=== PATIENT | female | born 1935 | race Two or more races ===

== ENCOUNTER 2018-11-13 16:29 | Inpatient (IN) | payer MEDICARE, MEDICAID ==
[~2018-11-13] VITALS: Ht 152.4 cm; Wt 64.0 kg
--- NOTE | 2018-11-13 16:38 | NUR ---
FROM MD OFFICE W FACIAL DROOP, LKW 0900 TODAY; S/P GLF C/O LOWER BACK PAIN. LEFT-SIDED FACIAL DROOP, -DYSARTHRIA. [place]-SPEAKING, AOX3, VSS, RR EVEN AND UNLABORED ON RA. FAMILY AT BEDSIDE. HOOKED TO MONITOR AND READY FOR EVAL.
[2018-11-13] MEDS ORDERED: MECL-102 PO (16:59)
[2018-11-13] MEDS ORDERED: FLUT1DIS3 IH (16:59)
[2018-11-13] MEDS ORDERED: OLME40TA12 PO (16:59)
[2018-11-13] MEDS ORDERED: ASPI-605 PO (16:59)
[2018-11-13] MEDS ORDERED: DONE10TA44 PO (16:59)
[2018-11-13] MEDS ORDERED: LORA0.5T PO (16:59)
[2018-11-13] MEDS ORDERED: METF-440 PO (16:59)
[2018-11-13] MEDS ORDERED: ATEN25TA PO (16:59)
[2018-11-13] MEDS ORDERED: SITA100T PO (16:59)
[2018-11-13] MEDS ORDERED: SIMV20TA6 PO (16:59)
[2018-11-13 17:29] LABS: BASOPHILS % (AUTO) 0.8 % (0.0-2.0); EOSINOPHILS % (AUTO) 2.1 % (0.0-6.0); HEMATOCRIT 42 % (33-45); HEMOGLOBIN 14.7 g/dL (11.5-14.8); LYMPHOCYTES # (AUTO) 1.1 /CMM (0.8-4.8); LYMPHOCYTES % (AUTO) 20.4 % (20.0-44.0); MEAN CORPUSCULAR HGB CONC 35 g/dl (31.0-36.0); MEAN CORPUSCULAR VOLUME 89 fL (82-100); MONOCYTES # (AUTO) 0.5 /CMM (0.1-1.30); MONOCYTES % (AUTO) 8.7 % (2.0-12.0); NEUTROPHILS # (AUTO) 3.7 /CMM (1.8-8.9); PLATELET COUNT (AUTO) 84 /CMM (150-450); RED BLOOD CELL COUNT(AUTO) 4.71 MIL/uL (4.0-5.2); WHITE BLOOD COUNT (AUTO) 5.4 K/uL (4.3-11.0)
[2018-11-13] MEDS ORDERED: CT SWABBABLE VALVE TRANS SET 1 EA INFUS.SET MC ONE (17:31)
[2018-11-13] MEDS ORDERED: IOHEXOL-350 100 ML VIAL IV ONE (17:31)
[2018-11-13] MEDS ORDERED: IV NS 0.9% 250 ML IV ONE (17:31)
[2018-11-13 17:39] LABS: EOSINOPHILS % (MANUAL) 1 % (0-4); LYMPHOCYTES % (MANUAL) 21 % (16-48); NEUTROPHILS % (MANUAL) 72 (42-76); REACTIVE LYMPHOCYTES 6 % (0-0)
[2018-11-13 17:47] LABS: ALANINE AMINOTRANSFERASE 34 U/L (12-78); ALBUMIN 3.5 g/dL (3.4-5.0); ALKALINE PHOSPHATASE 108 U/L (46-116); ASPARTATE AMINOTRANSFERASE 29 U/L (15-37); BILIRUBIN,DIRECT 0.2 mg/dL (0.0-0.2); BILIRUBIN,TOTAL 0.7 mg/dL (0.2-1.0); CALCIUM, SERUM 8.7 mg/dL (8.5-10.1); CHLORIDE 106 mmol/L (98-107); CREATININE 0.8 mg/dL (0.6-1.3); GLUCOSE 218 mg/dL (74-106); SODIUM SERUM 140 mmol/L (136-145); TOTAL PROTEIN, SERUM 7.1 g/dL (6.4-8.2); UREA NITROGEN, BLOOD 16 mg/dL (7-18)
[2018-11-13 17:54] LABS: CARBON DIOXIDE 21 mmol/L (21-32)
[2018-11-13] MEDS ORDERED: ASPIRIN 325 MG TABLET ONE (18:14)
--- NOTE | 2018-11-13 18:28 | NUR ---
Patient is resting comfortably in bed with eyes closed. Easily aroused. VSS
[2018-11-13] MEDS ORDERED: ASPIRIN 325 MG TABLET PO ONE (18:30)
--- NOTE | 2018-11-13 18:31 | NUR ---
CALLED FOR TELE BED, DX CVA
[2018-11-13 18:40] LABS: CHOLESTEROL 122 mg/dL (<200); HDL CHOLESTEROL 43 mg/dL (40-60); LDL 62 mg/dL (0-99); TRIGLYCERIDES 145 mg/dL (30-150)
[2018-11-13] MEDS ORDERED: IV 1/2NS 1000 ML 1,000 ML IV PRN (20:00)
--- NOTE | 2018-11-13 20:24 | NUR ---
REPORT GIVEN TO AMANDO MERLOS FOR 113-1 TELE
--- NOTE | 2018-11-13 20:50 | NUR ---
GUEST SERVICE TEAM LEADER NOTE RECEIVED PT VIA GUNEY. TRANSFERRED SAFELY TO BED. FAMILY AT BEDSIDE. PT A/O X2-3, FOLLOWS COMMANDS AND ABLE TO VERBALIZE NEEDS IN [place]. SPEECH IS NOT SLURRED OR DELAYED. DAUGHTER AT BEDSIDE TRANSLATING PT NEEDS. NOTED WITH LEFT SIDED FACIAL DROOP. NO C/O PAIN OR DISCOMFORT NOTED. ON ROOM AIR, SATURATING WELL AND BREATHING REGULAR AND UNLABORED. FINGER FOURDRINIER OPERATOR STRONG BILATERALLY. PT ABLE TO POINT TOES AND MOVE LEGS AGAINST PRESSURE. ON ASPIRATION PRECAUTIONS AND HOB ELEVATED. CALL LIGHT WITHIN REACH. WILL CONTINUE TO MONITOR.
--- NOTE | 2018-11-13 20:51 | NUR ---
[facility]
[2018-11-13] MEDS ORDERED: SIMVASTATIN 20 MG TABLET PO SCH (22:00)
[2018-11-13] MEDS: MECLIZINE HCL 25 MG TABLET PO SCH (22:37)
[2018-11-13] MEDS: ATENOLOL 25 MG TABLET PO SCH (22:37)
--- NOTE | 2018-11-13 22:40 | NUR ---
GUITAR INSTRUCTOR NOTE PERFORMED BEDSIDE NURSING SWALLOW EVAL. PT ABLE TO SWALLOW SIPS OF WATER AND APPLE SAUCE WITHOUT DIFFICULTY. NO COUGHING NOTED WHEN SWALLOWING. HOB MAINTAINED ELEVATED. FAMILY AT BEDSIDE. NOTIFIED HOT PATCHER SETH DOCKET CLERK THAT PT IS SWALLOWING WITHOUT DIFFICULTY WITH ORDERS TO KEEP PT NPO OVER NIGHT, ORDER ST EVAL IN AM AND GIVE NIGHT TIME MEDS WITH SIP OF WATER OK. ORDERS NOTED AND CARRIED OUT. WILL MONITOR.
[2018-11-13] MEDS ORDERED: hydrALAZINE HCL IV 20 MG VIAL IV PRN (23:30)
[2018-11-14] VITALS: BP_SYST 114; BP_SYST 124; BP_DIAS 59; BP_DIAS 61
[2018-11-14] MEDS ORDERED: BLOOD SUGAR DIAGNOSTIC 1 EACH STRIP IN SCH
[2018-11-14] MEDS: BLOOD SUGAR DIAGNOSTIC 1 EACH STRIP IN SCH ×5 (00:37→21:27)
[2018-11-14 04:00] VITALS: BP 159/63
[2018-11-14 06:28] LABS: BASOPHILS % (AUTO) 0.8 % (0.0-2.0); EOSINOPHILS % (AUTO) 3.6 % (0.0-6.0); HEMATOCRIT 41 % (33-45); HEMOGLOBIN 14.3 g/dL (11.5-14.8); LYMPHOCYTES # (AUTO) 1.4 /CMM (0.8-4.8); LYMPHOCYTES % (AUTO) 27.7 % (20.0-44.0); MEAN CORPUSCULAR HGB CONC 35 g/dl (31.0-36.0); MEAN CORPUSCULAR VOLUME 89 fL (82-100); MONOCYTES # (AUTO) 0.4 /CMM (0.1-1.30); MONOCYTES % (AUTO) 8.4 % (2.0-12.0); NEUTROPHILS # (AUTO) 3.1 /CMM (1.8-8.9); NEUTROPHILS % (AUTO) 59.5 % (43.0-81.0); PLATELET COUNT (AUTO) 77 /CMM (150-450); RED BLOOD CELL COUNT(AUTO) 4.59 MIL/uL (4.0-5.2); WHITE BLOOD COUNT (AUTO) 5.2 K/uL (4.3-11.0)
[2018-11-14 06:41] LABS: CHOLESTEROL 106 mg/dL (<200); HDL CHOLESTEROL 42 mg/dL (40-60); LDL 55 mg/dL (0-99); TRIGLYCERIDES 94 mg/dL (30-150)
[2018-11-14 06:42] LABS: ALANINE AMINOTRANSFERASE 31 U/L (12-78); ALBUMIN 3.3 g/dL (3.4-5.0); ALKALINE PHOSPHATASE 99 U/L (46-116); ASPARTATE AMINOTRANSFERASE 24 U/L (15-37); BILIRUBIN,TOTAL 0.7 mg/dL (0.2-1.0); CALCIUM, SERUM 8.6 mg/dL (8.5-10.1); CARBON DIOXIDE 23 mmol/L (21-32); CHLORIDE 105 mmol/L (98-107); CREATININE 0.6 mg/dL (0.6-1.3); GLUCOSE 142 mg/dL (74-106); POTASSIUM 3.8 mmol/L (3.5-5.1); SODIUM SERUM 139 mmol/L (136-145); TOTAL PROTEIN, SERUM 6.6 g/dL (6.4-8.2); UREA NITROGEN, BLOOD 14 mg/dL (7-18)
[2018-11-14 07:10] LABS: THYROID STIMULATING HORMONE 3.302 uIU/mL (0.358-3.74)
--- NOTE | 2018-11-14 07:30 | NUR ---
ANATOMY TEACHER NOTES PT IN BED, AO X 3, [place] SPEAKING. ON RA, NOT IN ANY DISTRESS, NO SIGNS OF PAIN, SR HR 72 ON MONITOR, NPO FOR NOW UNTIL SEEN [facility] SPEECH THERAPIST. RT HAND WITH 1/2 NS RUNNING AT 80 ML/HR. SITE CLEAR. BED REST FOR NOW. SAFETY MEASURES IN PLACE. WILL CONT TO MONITOR.
[2018-11-14 08:00] VITALS: BP 138/67
[2018-11-14] MEDS: LOSARTAN POTASSIUM 50 MG TABLET PO SCH (08:29)
[2018-11-14] MEDS: LORAZEPAM 0.5 MG TABLET PO SCH (08:30)
[2018-11-14] MEDS: METFORMIN 500 MG TABLET PO SCH ×3 (08:30→18:07)
[2018-11-14] MEDS: ATENOLOL 25 MG TABLET PO SCH (08:31)
[2018-11-14] MEDS: LINAGLIPTIN 5 MG TABLET PO SCH (08:31)
[2018-11-14] MEDS ORDERED: ASPIRIN EC 81 MG TABLET.DR PO SCH (09:00)
[2018-11-14] MEDS ORDERED: ASPIRIN EC 325 MG TABLET.DR PO SCH (09:00)
[2018-11-14] MEDS: FLUTICASONE/VILANTEROL 1 EACH BLST.W.DEV IH SCH (09:00)
--- NOTE | 2018-11-14 09:30 | NUR ---
MECHANICAL ASSEMBLY NOTES DUE MEDS GIVEN PT SEEN BY SPEECH THERAPIST. SWALLOW EVAL DONE - PASSED. PLACED ON MECHANICAL SOFT CCHO 60 GMS/CARDIAC DIET.
[2018-11-14 12:00] VITALS: BP 123/58
[2018-11-14] MEDS: CARVEDILOL 12.5 MG TABLET PO SCH ×2 (12:28→21:24)
[2018-11-14 16:00] VITALS: BP_SYST 114; BP_SYST 130; BP_DIAS 62; BP_DIAS 87
--- NOTE | 2018-11-14 16:39 | NUR ---
FINANCIAL SERVICES EDUCATION CONSULTANT NOTES SHREYA HERNANDEZ NP INFORMED, UNABLE TO DO MRI OF BRAIN DUE TO PATIENT WOULD NOT LIE STILL. PER HIM TO TRY AGAIN TOMORROW. ORDER PUT IN.
[2018-11-14 17:13] LABS: APPEARANCE,URINE TURBID (CLEAR); BILIRUBIN,URINE NEGATIVE (NEGATIVE); BLOOD, URINE 1+ Ery/uL (NEGATIVE); COLOR,URINE YELLOW (YELLOW); KETONES,URINE NEGATIVE (NEGATIVE); LEUKOCYTE ESTERASE ,URINE 3+ (NEGATIVE); NITRITE, URINE POSITIVE (NEGATIVE); PH,URINE 6.5 (5.0-8.0); PROTEIN,URINE NEGATIVE (NEGATIVE); UGLUCOSE NEGATIVE (NEGATIVE); UROBILINOGEN,URINE 0.2 EU/dL (0.2)
[2018-11-14 17:29] LABS: BACTERIA,URINE 3+ /HPF (None Seen); SQUAMOUS EPITHELIAL CELL,UR Few /HPF (None Seen); WBC,URINE TOO NUMEROUS TO COUN /HPF (0-3)
--- NOTE | 2018-11-14 18:28 | NUR ---
RN NOTES PATIENT PICKED UP FOR MRI.
--- NOTE | 2018-11-14 19:35 | NUR ---
RN NOTES PATIENT RESTING. FAMILY AT BEDSIDE. ON RA, NOT IN ANY DISTRESS. SEEN BY DR. KINGSTON. STARTED ON PLAVIX, ZOCOR INCREASED TO 40 MG DAILY. ALL NEEDS MET. THORACIC/LUMBAR BRACE AT BEDSIDE C/O PHYSICAL THERAPY TOMORROW. ALL NEEDS MET AT THIS TIME. NO OTHER SIGNIFICANT CHANGE IN CONDITION. ENDORSED TO NEXT SHIFT FOR JUSTYNA.
[2018-11-14 20:00] VITALS: BP 121/66
--- NOTE | 2018-11-14 20:00 | NUR ---
RN/TELE NOTES: RECEIVED PT. IN BED AWAKE NOT IN ANY RESPIRATORY DISTRESS NOTED. PT. IS ARABIC SPEAKING ONLY. NO S/S OF CHEST PAIN OR SOB NOTED. PT. WAS ABLE TO TAKE WHOLE MEDS W/ NO DIFFICULTY. ON TELE MONITOR W/ SR 82. PT. PULLED OUT HER IV. INCONTINENT OF B/B. GOOD ROBERTO CARE RENDERED. WILL CONTINUE TO MONITOR.
[2018-11-14] MEDS: DONEPEZIL 5 MG TABLET PO SCH (21:22)
[2018-11-14] MEDS: MECLIZINE HCL 25 MG TABLET PO SCH (21:24)
[2018-11-14] MEDS: SIMVASTATIN 40 MG TABLET PO SCH (21:24)
[2018-11-15] VITALS: BP 114/59
[2018-11-15 04:00] VITALS: BP 101/52
--- NOTE | 2018-11-15 07:15 | NUR ---
SHELL SHOP SUPERVISOR OPENING NOTES RECEIVED REPORT FROM LONE LEAD LINEMAN RN. PT IS RESTING IN BED. NO OBVIOUS SIGNS OF SOB OR PAIN NOTED AT THIS TIME. REPORTED BY LONE LEAD LINEMAN RN PT PULLED OUT IV AND IS REFUSING TO HAVE ANOTHER ONE PUT IN. BED IS IN LOWEST AND LOCKED POSITION WITH CALL LIGHT IN REACH. WILL CONTINUE TO MONITOR.
[2018-11-15 07:26] LABS: ALANINE AMINOTRANSFERASE 26 U/L (12-78); ALKALINE PHOSPHATASE 91 U/L (46-116); ASPARTATE AMINOTRANSFERASE 22 U/L (15-37); BASOPHILS % (AUTO) 0.5 % (0.0-2.0); BILIRUBIN,TOTAL 0.8 mg/dL (0.2-1.0); CALCIUM, SERUM 8.3 mg/dL (8.5-10.1); CARBON DIOXIDE 24 mmol/L (21-32); CHLORIDE 106 mmol/L (98-107); CREATININE 0.8 mg/dL (0.6-1.3); EOSINOPHILS % (AUTO) 2.6 % (0.0-6.0); GLUCOSE 138 mg/dL (74-106); HEMATOCRIT 39 % (33-45); HEMOGLOBIN 13.4 g/dL (11.5-14.8); LYMPHOCYTES # (AUTO) 1.7 /CMM (0.8-4.8); LYMPHOCYTES % (AUTO) 27.4 % (20.0-44.0); MEAN CORPUSCULAR HGB CONC 35 g/dl (31.0-36.0); MEAN CORPUSCULAR VOLUME 89 fL (82-100); MONOCYTES # (AUTO) 0.5 /CMM (0.1-1.30); MONOCYTES % (AUTO) 7.8 % (2.0-12.0); NEUTROPHILS # (AUTO) 3.7 /CMM (1.8-8.9); NEUTROPHILS % (AUTO) 61.7 % (43.0-81.0); PHOSPHORUS 3.9 mg/dL (2.5-4.9); PLATELET COUNT (AUTO) 87 /CMM (150-450); RED BLOOD CELL COUNT(AUTO) 4.38 MIL/uL (4.0-5.2); SODIUM SERUM 139 mmol/L (136-145); TOTAL PROTEIN, SERUM 6.3 g/dL (6.4-8.2); UREA NITROGEN, BLOOD 19 mg/dL (7-18)
--- NOTE | 2018-11-15 07:29 | NUR ---
RN/TELE NOTES: PT. PULLED OUT HER IV AND REFUSED TO HAVE PUT ANOTHER ONE. EXPLAINED THE IMPORTANCE BUT STILL REFUSED. PAGED BASE FILLER OPERATOR TO INFORM ABOUT THE BS OF 170. WILL ENDORSE AM SHIFT TO F/U UP. REPORT GIVEN TO AM SHIFT NURSE FOR JUSTYNA.
--- NOTE | 2018-11-15 07:33 | NUR ---
[facility] CALLED AT 0733.MD ALREADY AWARE OF HIGH LEVEL. TRENDING DOWN.
[2018-11-15] MEDS: BLOOD SUGAR DIAGNOSTIC 1 EACH STRIP IN SCH ×4 (07:59→21:12)
[2018-11-15 08:00] VITALS: BP 131/47
[2018-11-15] MEDS: FLUTICASONE/VILANTEROL 1 EACH BLST.W.DEV IH SCH (08:26)
[2018-11-15] MEDS: LINAGLIPTIN 5 MG TABLET PO SCH (08:26)
[2018-11-15] MEDS: LORAZEPAM 0.5 MG TABLET PO SCH ×2 (08:26→08:33)
[2018-11-15] MEDS: CLOPIDOGREL BISULFATE 75 MG TABLET PO SCH (08:27)
[2018-11-15] MEDS: METFORMIN 500 MG TABLET PO SCH ×4 (08:27→16:43)
[2018-11-15] MEDS: LOSARTAN POTASSIUM 50 MG TABLET PO SCH (08:27)
[2018-11-15] MEDS: CARVEDILOL 12.5 MG TABLET PO SCH ×2 (08:28→21:11)
[2018-11-15] MEDS ORDERED: HYDROCODONE/APAP 5/325MG 1 EACH TABLET PO PRN (10:30)
--- NOTE | 2018-11-15 13:34 | NUR ---
PT REFUSING IV INSERTION. CALLED DYE TUB TENDER MARY SWITCHED ANTIBIOTIC TO PO.
[2018-11-15] MEDS ORDERED: DEXTROSE 50%-WATER 50 ML DISP.SYRIN IV PRN (14:00)
[2018-11-15] MEDS ORDERED: CEFTRIAXONE 1 G in IV D5W 50 ML IV SCH (14:00)
[2018-11-15] MEDS: LEVOFLOXACIN (500MG) 500 MG TABLET PO SCH (14:27)
[2018-11-15 16:00] VITALS: BP 121/60
--- NOTE | 2018-11-15 16:43 | NUR ---
PT AND PT'S DAUGHTER ARE REFUSING TO TAKE METFORMIN TODAY BELIEVES TOMORROW THE MEDICATION SHOULD BE STARTED AGAIN.
--- NOTE | 2018-11-15 19:30 | NUR ---
MS1 RN NOTES RECEIVED ON BED ON SITTING POSITION,A/O X3,ARMENIA SPEAKING,EATING GUYANESE FOOD,FAMILY MEMBER AT BEDSIDE.NO SALINE LOCK PER REPORT,FAMILY REFUSED IV RE INSERTION .ALL MEDS CHANGED TO PO BY DR HERNANDEZ.NOTED SLIGHT RIGHT FACIAL DROOP.BUT NEGATIVE FOR STROKE.FALL PRECAUTION OBSERVED,BED ON LOWEST POSITION AND LOCKED.CALL LIGHT IN REACH,NEEDS ANTICIPATED.
--- NOTE | 2018-11-15 19:34 | NUR ---
RN MS CLOSING NOTES GAVE REPORT TO STRATEGY LEAD RN. PT IS RESTING IN BED. NO OBVIOUS SIGNS OF SOB OR PAIN NOTED AT THIS TIME. REPORTED BY STRATEGY LEAD RN PT PULLED OUT IV AND IS REFUSING TO HAVE ANOTHER ONE PUT IN. BED IS IN LOWEST AND LOCKED POSITION WITH CALL LIGHT IN REACH. WILL ENDORSE CONTINUITY OF CARE TO STRATEGY LEAD RN..
[2018-11-15] MEDS: SIMVASTATIN 40 MG TABLET PO SCH (21:12)
[2018-11-15] MEDS: MECLIZINE HCL 25 MG TABLET PO SCH (21:12)
[2018-11-15] MEDS: DONEPEZIL 5 MG TABLET PO SCH (21:13)
[2018-11-15] MEDS: INSULIN REGULAR, HUMAN 100 UNIT/ML 3 ML VIAL SQ PRN (21:22)
--- NOTE | 2018-11-15 21:30 | NUR ---
MS1 RN NOTES ACCUCHECK BLOOD SUGAR CHECK 137,HUMULIN R 2 UNITS GIVEN SQ ON RIGHT DELTOID PER SLIDING SCALE
[2018-11-16 00:01] VITALS: BP 135/70
[2018-11-16 05:06] VITALS: BP 120/62
[2018-11-16 06:35] LABS: BASOPHILS % (AUTO) 0.7 % (0.0-2.0); EOSINOPHILS % (AUTO) 2.9 % (0.0-6.0); HEMATOCRIT 39 % (33-45); HEMOGLOBIN 13.5 g/dL (11.5-14.8); LYMPHOCYTES # (AUTO) 1.2 /CMM (0.8-4.8); LYMPHOCYTES % (AUTO) 26.8 % (20.0-44.0); MEAN CORPUSCULAR HGB CONC 35 g/dl (31.0-36.0); MEAN CORPUSCULAR VOLUME 89 fL (82-100); MONOCYTES # (AUTO) 0.5 /CMM (0.1-1.30); MONOCYTES % (AUTO) 10.1 % (2.0-12.0); NEUTROPHILS # (AUTO) 2.7 /CMM (1.8-8.9); NEUTROPHILS % (AUTO) 59.5 % (43.0-81.0); PLATELET COUNT (AUTO) 77 /CMM (150-450); RED BLOOD CELL COUNT(AUTO) 4.36 MIL/uL (4.0-5.2); WHITE BLOOD COUNT (AUTO) 4.6 K/uL (4.3-11.0)
--- NOTE | 2018-11-16 06:42 | NUR ---
MS1 RN NOTES NO SIGNIFICANT CHANGE IN STATUS LAST NIGHT.SLEPT WELL AND COMFORTABLE.DENIES ANY PAIN DISCOMFORTS.STILL NO IV ACCESS,PATIENT/FAMILY REFUSED ONE.EXPLAINED RISK AND BENEFITS BECAUSE SHE'S DIABETIC,STILL REFUSED.IN NO ACUTE DISTRESS.WILL ENDORSE TO DAY NURSE FOR CONTINUITY OF CARE.
[2018-11-16 07:16] LABS: CALCIUM, SERUM 8.2 mg/dL (8.5-10.1); CARBON DIOXIDE 22 mmol/L (21-32); CHLORIDE 110 mmol/L (98-107); CREATININE 1.1 mg/dL (0.6-1.3); GLUCOSE 143 mg/dL (74-106); POTASSIUM 4.2 mmol/L (3.5-5.1); SODIUM SERUM 141 mmol/L (136-145); UREA NITROGEN, BLOOD 27 mg/dL (7-18)
--- NOTE | 2018-11-16 07:36 | NUR ---
MS RN OPENING NOTES RECEIVED PT IS RESTING IN BED SLEEPING. NO SOB, ACUTE DISTRESS OR PAIN NOTED AT THIS TIME. NO CHANGES REPORTED OVERNIGHT. PT HAD PULLED OUT IV AND IS REFUSING TO HAVE ANOTHER ONE PUT IN. BED IS IN LOWEST AND LOCKED POSITION WITH CALL LIGHT IN REACH. WILL CONTINUE TO MONITOR.
[2018-11-16] MEDS: BLOOD SUGAR DIAGNOSTIC 1 EACH STRIP IN SCH ×2 (07:52→12:40)
[2018-11-16 08:00] VITALS: BP 123/61
[2018-11-16 08:08] VITALS: BP 123/61
[2018-11-16 08:36] LABS: LYMPHOCYTES % (MANUAL) 26 % (16-48); MONOCYTES % (MANUAL) 6 % (0-11.0); NEUTROPHILS % (MANUAL) 68 (42-76)
[2018-11-16] MEDS: METFORMIN 500 MG TABLET PO SCH ×2 (08:47→12:40)
[2018-11-16] MEDS: LINAGLIPTIN 5 MG TABLET PO SCH (08:47)
[2018-11-16] MEDS: LORAZEPAM 0.5 MG TABLET PO SCH (08:47)
[2018-11-16] MEDS: FLUTICASONE/VILANTEROL 1 EACH BLST.W.DEV IH SCH (08:47)
[2018-11-16] MEDS: LOSARTAN POTASSIUM 50 MG TABLET PO SCH (08:48)
[2018-11-16] MEDS: CLOPIDOGREL BISULFATE 75 MG TABLET PO SCH (08:48)
[2018-11-16] MEDS: CARVEDILOL 12.5 MG TABLET PO SCH (08:49)
--- NOTE | 2018-11-16 11:47 | NUR ---
INFORMATICS EDUCATOR HERNANDEZ BEDSIDE. TENTATIVE PLAN IS TO D/C PATIENT TO [facility] AND CONTINUE PO ABX THERAPY.
[2018-11-16] MEDS ORDERED: VALA100026 PO (12:27)
[2018-11-16] MEDS ORDERED: PRED20TA PO (12:27)
[2018-11-16] MEDS ORDERED: LEVO500T2 PO (12:27)
[2018-11-16] MEDS ORDERED: CLOP75TA15 PO (12:27)
[2018-11-16] MEDS ORDERED: PRED50TA PO (12:27)
[2018-11-16] MEDS ORDERED: CARV12.52 PO (12:27)
[2018-11-16] MEDS ORDERED: SIMV40TA5 PO (12:27)
[2018-11-16] MEDS ORDERED: PRED5TAB48 PO (12:27)
[2018-11-16] MEDS ORDERED: predniSONE 20 MG TABLET PO SCH (12:30)
[2018-11-16] MEDS ORDERED: DEXT50DI8 IV (12:30)
[2018-11-16] MEDS ORDERED: Blood Sugar Diagnostic IN (12:30)
[2018-11-16] MEDS ORDERED: INSU100V28 SQ (12:30)
[2018-11-16] MEDS: INSULIN REGULAR, HUMAN 100 UNIT/ML 3 ML VIAL SQ PRN (12:31)
[2018-11-16] MEDS: LEVOFLOXACIN (500MG) 500 MG TABLET PO SCH (14:29)
[2018-11-16 16:00] VITALS: BP 103/52
--- NOTE | 2018-11-16 16:24 | NUR ---
MS SENIOR TECHNICAL TRAINER NOTE [facility] DISCHARGED VIA EMT TRANSPORT TO [facility]. FAMILY AT BEDSIDE DURING D/C AND WENT WITH TRANSPORT CREW. PATIENT A/O X 2, NO SOB OR ACUTE DISTRESS, V/S WNL, BED CONFINED. NO MONITORS ON PATIENT. NO IV LINES. PATIENT CLEAN AND DRY. BELONGINGS LIST SIGNED BY DAUGHTER. PATIENT D/C W/O INCIDENT.
[2018-11-16] MEDS ORDERED: VALACYCLOVIR HCL 500 MG TABLET PO SCH (21:00)
== END 2018-11-16 16:56 | DRG 73 ==
LOC: ER 16:38 → TELE1 19:41 → MEDSG1 11-15 09:10
PROVIDERS: ADMIT Internal Medicine; ATTEND Nurse Practitioner Acute Care
DX: G51.0 Bell's palsy (principal); I21.A1 Myocardial infarction type 2; N39.0 Urinary tract infection, site not specified; J98.11 Atelectasis; M48.54XA Collapsed vertebra, not elsewhere classified, thoracic region, initial encounter for fracture; E78.5 Hyperlipidemia, unspecified; E11.9 Type 2 diabetes mellitus without complications; F03.90 Unspecified dementia, unspecified severity, without behavioral disturbance, psychotic disturbance, mood disturbance, and anxiety; I65.22 Occlusion and stenosis of left carotid artery; I10 Essential (primary) hypertension; I25.10 Atherosclerotic heart disease of native coronary artery without angina pectoris; I35.0 Nonrheumatic aortic (valve) stenosis; Z79.899 Other long term (current) drug therapy; Z79.82 Long term (current) use of aspirin; Z79.84 Long term (current) use of oral hypoglycemic drugs; I65.03 Occlusion and stenosis of bilateral vertebral arteries; W18.30XA Fall on same level, unspecified, initial encounter; Y92.009 Unspecified place in unspecified non-institutional (private) residence as the place of occurrence of the external cause; M48.061 Spinal stenosis, lumbar region without neurogenic claudication
CPT/HCPCS: 36415; 70450-TC; 70496-TC; 70498-TC; 70551-TC; 71045-TC; 71250-TC; 72131-TC; 73060-TC; 80048-TC; 80053-TC; 80061-TC; 80076-TC; 80305; 81000-TC; 82962-TC; 83735-TC; 83880; 84100-TC; 84443-TC; 84484-TC; 85025-TC; 85652-TC; 85730-TC; 87081-TC; 87086-TC; 87186-TC; 92526; 92611-TC; 93307-TC; 93880-TC; 97110-TC; 97116-TC; 97530-TC; 97535-TC; G0378; J0696; J1815; J3490; J7050; J7060; J8597; Q9967